=== PATIENT | female | born 1960 | race Caucasian/White ===

== ENCOUNTER 2017-04-04 18:50 | Emergency (ER) | payer OTHER ==
[~2017-04-04] VITALS: Ht 167.6 cm; Wt 99.8 kg
[~2017-04-04 18:50] MED LIST: ADVIL200 MG PO; AMITRIPTYLINE H25 M1 PO; FIORICET 325 MG1 TAB PO; LISINOPRIL-HCT1 EACH PO; MULTIVITAMIN1 TAB PO; NORVASC5 M1 PO; OXYBUTYNIN CHLOR5 M3 PO; PAROXETINE HCL30 M1 PO; SIMVASTATIN40 MG PO; SINGULAIR10 MG PO; VESICARE5 MG PO
--- NOTE | 2017-04-04 19:32 | ED UPPER/LOWER EXTREMITY COMPL ---
History of Present Illness General Chief Complaint: General Adult Stated Complaint: SWELLING TO HANDS "SOMETHING'S NOT RIGHT" X1DAY Source: patient Exam Limitations: no limitations Vital Signs & Intake/Output Vital Signs & Intake/Output Vital Signs Date Time Temp Pulse Resp B/P B/P Pulse O2 O2 Flow FiO2 Mean Ox Delivery Rate 04/04 2046 97.1 79 18 175/93 94 Room Air 04/04 1856 97.1 85 18 166/87 100 Room Air Allergies Coded Allergies: levofloxacin (Severe, ANAPHYLAXIS 08/16/16) sumatriptan (PALPITATIONS AND CHEST HEAVINESS 08/16/16) Reconcile Medications Acetaminophen/Butalbital/Caf (Fioricet 325 MG-50 MG-40 MG) 1 TAB TAB 1 TAB PO Q4P PRN HEADACHE do not exceed 6 tablet(s) in 24 hours AMITRIPTYLINE HCL (Amitriptyline Hydrochloride) 25 MG TAB 1 TAB PO QPM FIBROMYALGIA (Reported) Amlodipine Besylate (Norvasc) 5 MG TABLET 1 TAB PO DAILY htn Ibuprofen (Advil) 200 MG TAB 2 TAB PO QPM FIBROMYALGIA (Reported) Lisinopril/Hydrochlorothiazide (Lisinopril-Hctz 20-12.5 MG Tab) 1 EACH TABLET 1 TAB PO DAILY HEART (Reported) Montelukast Sodium (Singulair) 10 MG TAB 1 TAB PO DAILY ALLERGIES (Reported) Multivitamin (Multiple Vitamins) 1 TAB TAB 1 TAB PO DAILY SUPPLEMENT ( Reported) Oxybutynin Chloride (Oxybutynin Chloride ER) 5 MG TAB.ER.24 1 TAB PO DAILY BLADDER (Reported) Paroxetine HCl 30 MG TABLET 1 TAB PO DAILY MENTAL HEALTH (Reported) Simvastatin 40 MG TAB 1 TAB PO QPM CHOLESTEROL (Reported) Solifenacin Succinate (Vesicare) 5 MG TAB 1 TAB PO DAILY BLADDER (Reported) Triage Note: PT TO ED FOR 20 MINUTES OF BILATERAL HAND SWELLING, PT REPORTING SWELLING MOSTLY RESOLVED ON ARRIVAL TO ED, DID NOT TAKE ANYTHING AT HOME FOR IT, NO INJURY, BITE OR KNOWN CAUSE. DENIES ANY OTHER S/S. Triage Nurses Notes Reviewed? 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 pt denies prior episodes. no assoc fever, cold sxs, trauma or exposures. pt was walking outside during onset. Symptoms have now resolved. Patient states over she needed to take her rings off because of the swelling. Although she denied any prior episodes, she states she has had very mild symptoms on occasion. She also denied swelling in any other areas but with further questioning she is currently experiencing a rash of the left anterior leg that has been present for a month. She is using compression stockings for this. She has a similar although less intense rash in the same area on her right leg. Past History Travel History Traveled to [place] past 21 day No Medical History Any Pertinent Medical History? see below for history Neurological: migraine EENT: NONE Cardiovascular: hypertension Respiratory: NONE Gastrointestinal: NONE Hepatic: NONE Renal: NONE Musculoskeletal: fibromyalgia Psychiatric: NONE Endocrine: NONE Blood Disorders: NONE Cancer(s): NONE Surgical History Surgical History: hysterectomy Psychosocial History What is your primary language Greek Tobacco Use: Never used ETOH Use: denies use Illicit Drug Use: denies illicit drug use Family History Hx Contributory? No Review of Systems Review of Systems Constitutional: Reports: no symptoms. EENTM: Reports: no symptoms. Respiratory: Reports: no symptoms. Cardiovascular: Reports: no symptoms. Gastrointestinal/Abdominal: Reports: no symptoms. Genitourinary: Reports: no symptoms. Musculoskeletal: Reports: no symptoms. Skin: Reports: see HPI. Neurological/Psychological: Reports: no symptoms. Hematologic/Endocrine: Reports: no symptoms. Immunological: Reports: no symptoms. All Other Systems: Reviewed and Negative Physical Exam Physical Exam General Appearance: see below Comments: Gen.: Well-nourished, well-developed, no acute respiratory distress. Head: Normocephalic, atraumatic. Eyes: Normal inspection bilaterally Ears: Normal inspection bilaterally Nose: Normal inspection Throat/mouth : Moist mucosa Neck: Supple, full range of motion, no goiter Heart: Regular rate and rhythm, no murmurs rubs or gallops Lungs: Clear to auscultation bilaterally with normal air entry Chest: Nontender Back: Normal range of motion Abdomen: Soft, nontender, nondistended, normal bowel sounds Extremities: Normal range of motion grossly, equal radial pulses, no cyanosis, no pallor or edema of the hands, sensation is intact to both hands. Bilateral 1 -2+ lower extremity pitting edema with bilateral stasis dermatitis left greater than right. Neurologic: Cranial nerves grossly intact, speech is clear Skin: warm and dry Psychiatric: Calm, cooperative, no apparent delusions or hallucinations Progress Differential Diagnosis: hypertension, vasogenic edema, medication side effect Plan of Care: Orders Procedure Date/time Status COMPREHENSIVE METABOLIC PANEL 04/04 1930 Complete CREATINE PHOSPHOKINASE 04/04 1930 Complete CBC WITHOUT DIFFERENTIAL 04/04 1930 Complete Laboratory Tests 04/04/171945: Anion Gap 10, Estimated GFR 57 L, BUN/Creatinine Ratio 16.0, Glucose 93, Calcium 9.3, Total Bilirubin 0.6, AST 25, ALT 47, Alkaline Phosphatase 94, Creatine Kinase 76, Total Protein 7.2, Albumin 4.2, Globulin 3.0, Albumin/ Globulin Ratio 1.4, CBC w Diff NO MAN DIFF REQ, RBC 4.88, MCV 83.2, MCH 28.3, RDW 13.7, MPV 7.8, Gran % 58.5, Lymphocytes % 30.8, Monocytes % 6.4, Eosinophils % 3.5, Basophils % 0.8, Absolute Granulocytes 6.0, Absolute Lymphocytes 3.1, Absolute Monocytes 0.6, Absolute Eosinophils 0.4, Absolute Basophils 0.1, PUBS MCHC 34.0 Comments: Examination reveals a stasis dermatitis of both legs, left greater than right. She also has 1-2+ lower extremity pitting edema. Laura states at one point she was treated with an antihypertensive with a diuretic but her blood pressure was too labile and this was discontinued. She has had reactions to other antihypertensive medications. 04/04/2017 9:00:46 PM I have updated Laura on her test results. She has replaced her rings on her hands and seems to be without complaint. Departure Departure Disposition: HOME OR SELF CARE Condition: Stable Clinical Impression Primary Impression: Edema of hand Referrals: RAYMOND DAMON MD (PCP/Family) Additional Instructions: Low-salt diet and avoid caffeine or stimulants. Follow-up with your primary care doctor within the next 48-72 hours for reevaluation of your elevated blood pressure. It seems that you should be placed on blood pressure medications to control your blood pressure in the future. Your primary care doctor should also consider other possibilities for your hand swelling other than high blood pressure (medication side effect, vasogenic edema secondary to heat exposure). Return immediately if any concerns or sudden worsening. Thank you for choosing the [facility] Emergency Department for your care. It was a pleasure to serve you today. Julio C Hastings M.D. [facility] Departure Forms: Customer Survey General Discharge Information
[2017-04-04 19:54] LABS: ABSOLUTE BASOPHIL COUNT 0.1 /CUMM (0.0-0.2); ABSOLUTE EOSINOPHIL COUNT 0.4 /CUMM (0.0-0.7); ABSOLUTE LYMPH COUNT 3.1 /CUMM (1.2-3.4); ABSOLUTE MONOCYTE COUNT 0.6 /CUMM (0.10-0.60); BASOPHIL % 0.8 % (0.0-2.0); EOSINOPHIL % 3.5 % (0-5); GRANULOCYTE % 58.5 % (42.2-75.2); HEMATOCRIT 40.6 % (37-47); MEAN CORPUSCULAR HGB 28.3 PG (27.0-31.0); MEAN CORPUSCULAR VOLUME 83.2 FL (81.0-99.0); MEAN PLATELET VOLUME 7.8 FL (7.4-10.4); PLATELET COUNT 308 /CUMM (130-400); RBC DISTRIBUTION WIDTH 13.7 % (11.5-14.5); RED BLOOD CELL CT 4.88 /CUMM (4.20-5.40); WHITE BLOOD CELL COUNT 10.2 /CUMM (4.8-10.8)
[2017-04-04 20:46] VITALS: BP 175/93
== END 2017-04-04 21:14 ==
LOC: ERH 18:50
PROVIDERS: Emergency Medicine
DX: R60.9 Edema, unspecified (principal)

== ENCOUNTER 2018-06-25 17:45 | Emergency (ER) | payer OTHER ==
[~2018-06-25] VITALS: Ht 167.6 cm; Wt 97.1 kg
--- NOTE | 2018-06-25 18:24 | ED GENERAL ADULT ---
History of Present Illness General Chief Complaint: Neck/Upper Back Pain/Injury Stated Complaint: RIGHT UPPER BACK PAIN Source: patient Exam Limitations: no limitations Vital Signs & Intake/Output Vital Signs & Intake/Output Vital Signs Date Time Temp Pulse Resp B/P B/P Pulse O2 O2 Flow FiO2 Mean Ox Delivery Rate 06/25 1956 97.8 61 16 141/78 100 Room Air 06/258 98.6 78 18 133/86 100 Room Air Allergies Coded Allergies: amlodipine (From NORVASC) (Severe, RASH 06/25/18) levofloxacin (Severe, ANAPHYLAXIS 08/16/16) lisinopril (Severe, IRRADIC BP 06/25/18) sumatriptan (PALPITATIONS AND CHEST HEAVINESS 08/16/16) Uncoded Allergies: QUINALONES (Severe, ANAPHYLAXIS 06/25/18) Triage Note: 57 YO FEMALE TO TRIAGE FOR EVAL OF PAIN IN UPPER BACK ON BOTH SIDES. STATES HX OF PLEURISY AND THIS FEELS THE SAME. STATES PAIN ON INSPIRATION. DENIES CHEST PAIN. Triage Nurses Notes Reviewed? yes HPI: Ms. Stewart is a 57-year-old patient with a significant past medical history of fibromyalgia comes to the ED complaining of back pain/chest pain after called to her PCP advised her to come to the emergency department. This chest/back pain is located on both sides in the upper back, present only on deep inspiration; when present the pain is 8 out of 10, described as sharp stabbing, that did not alleviate with Tylenol, nor does he radiate anywhere else. Of note , patient reports she has had this type of pain episodes in the past. Patient denies recent upper respiratory tract infection, cough, rhinorrhea, shortness of breath, recent immobilization, sick contacts, pain in the lower extremity, fever , chills, nausea/vomiting. (Jude Bowens MD,[facility]) Reconcile Medications Acetaminophen/Butalbital/Caf (Fioricet 325 MG-50 MG-40 MG) 1 TAB TAB 1 TAB PO Q4P PRN HEADACHE do not exceed 6 tablet(s) in 24 hours AMITRIPTYLINE HCL (Amitriptyline Hydrochloride) 25 MG TAB 1 TAB PO QPM FIBROMYALGIA (Reported) Amlodipine Besylate (Norvasc) 5 MG TABLET 1 TAB PO DAILY htn Ibuprofen (Advil) 200 MG TAB 2 TAB PO QPM FIBROMYALGIA (Reported) Ibuprofen 600 MG TABLET 1 TAB PO Q6P PRN pain with food Lisinopril/Hydrochlorothiazide (Lisinopril-Hctz 20-12.5 MG Tab) 1 EACH TABLET 1 TAB PO DAILY HEART (Reported) Montelukast Sodium (Singulair) 10 MG TAB 1 TAB PO DAILY ALLERGIES (Reported) Multivitamin (Multiple Vitamins) 1 TAB TAB 1 TAB PO DAILY SUPPLEMENT ( Reported) Oxybutynin Chloride (Oxybutynin Chloride ER) 5 MG TAB.ER.24 1 TAB PO DAILY BLADDER (Reported) Paroxetine HCl 30 MG TABLET 1 TAB PO DAILY MENTAL HEALTH (Reported) Simvastatin 40 MG TAB 1 TAB PO QPM CHOLESTEROL (Reported) Solifenacin Succinate (Vesicare) 5 MG TAB 1 TAB PO DAILY BLADDER (Reported) (Luis Carlos CUBA,Leeroy Florentino) Past History Travel History Traveled to [place] past 21 day No Medical History Any Pertinent Medical History? none Neurological: migraine EENT: NONE Cardiovascular: hypertension Respiratory: NONE Gastrointestinal: NONE Hepatic: NONE Renal: NONE Musculoskeletal: fibromyalgia Psychiatric: NONE Endocrine: NONE Blood Disorders: NONE Cancer(s): NONE Surgical History Surgical History: hysterectomy Psychosocial History What is your primary language Tanzanian Tobacco Use: Never used Family History Hx Contributory? Yes (Deonte Briscoe MD) Review of Systems Review of Systems Constitutional: Reports: see HPI. (Deonte Briscoe MD) Review of Systems Constitutional: Reports: no symptoms. EENTM: Reports: no symptoms. Respiratory: Reports: see HPI, cough. Cardiovascular: Reports: see HPI, chest pain. GI: Reports: no symptoms. Genitourinary: Reports: no symptoms. Musculoskeletal: Reports: no symptoms. Skin: Reports: no symptoms. Neurological/Psychological: Reports: no symptoms. Hematologic/Endocrine: Reports: no symptoms. Immunologic/Allergic: Reports: no symptoms. All Other Systems: Reviewed and Negative (Carlos Collins MD) Physical Exam Physical Exam General Appearance: well developed/nourished, no apparent distress, alert, awake Comments: General: Well-nourished, well-developed, not in acute distress. Head: Normocephalic, atraumatic. No signs of trauma. Eyes: Normal inspection bilaterally. Ears: Normal inspection bilaterally. Nose: Normal inspection, no polyps seen. Neck: Supple, full range of motion. Trachea midline. Heart: Regular rate and rhythm, no murmurs rubs or gallops. Lungs: Clear to auscultation bilaterally with normal air entry; pain is noted upon deep inspiration. Chest: Nontender. Back: Normal range of motion, no pain on palpation in lung area; no paraspinal tenderness. Abdomen: Bowel sounds present, soft, nontender, nondistended. Extremities: Normal range of motion grossly, equal radial pulses, no cyanosis clubbing or edema. Neurologic: Cranial nerves grossly intact, speech is clear Skin: warm and dry. Core Measures ACS in differential dx? No CVA/TIA Diagnosis: No Sepsis Present: No Sepsis Focused Exam Completed? No (Jude Bowens MD,[place]) Progress Differential Diagnoses I considered the following diagnoses in my evaluation of the patient: [Pleurisy, PNA, PE] Plan of Care: Orders Procedure Date/time Status Add-on Test (ER Only) 06/25 183 Active TROPONIN LEVEL 06/25 1800 Complete HIGH SENSITIVITY CRP 06/25 1800 Complete WESTERGREN SED RATE 06/25 1800 Complete D-DIMER 06/25 1800 Complete CBC WITHOUT DIFFERENTIAL 06/25 1800 Complete BASIC METABOLIC PANEL 06/25 1800 Complete EKG 06/25 1800 Active Laboratory Tests 06/25/18 1840: Anion Gap 6, Estimated GFR > 60, BUN/Creatinine Ratio 22.5, Glucose 96, Calcium 9.0, Troponin I < 0.01, C-React Prot High Sens 5.8 H, D-Dimer High Sensitivty < 200, CBC w Diff NO MAN DIFF REQ, RBC 4.59, MCV 85.8, MCH 29.1, MCHC 33.9, RDW 13.4, MPV 8.1, Gran % 52.4, Lymphocytes % 35.9, Monocytes % 8.3, Eosinophils % 2.9, Basophils % 0.5, Absolute Granulocytes 4.5, Absolute Lymphocytes 3.1, Absolute Monocytes 0.7 H, Absolute Eosinophils 0.2, Absolute Basophils 0, ESR Westergren 3 Initial ED EKG: rhythm (Jude Bowens MD,[place]) Differential Diagnoses I considered the following diagnoses in my evaluation of the patient: Hand-Off Endorsed To: Leeroy Aldridge MD Endorsed Time: 1899 Pending: labs (Carlos Collins MD) Differential Diagnoses I considered the following diagnoses in my evaluation of the patient: (Luis Carlos CUBA,Leeroy Florentino) Departure Departure Condition: Stable Referrals: Moo Bentley MD (PCP/Family) Departure Forms: Customer Survey General Discharge Information (Jude Bowens MD,[place]) Departure Clinical Impression Primary Impression: Acute chest wall pain Resident Co-Sign Statement Statement: ED Attending supervision documentation- x I saw and evaluated the patient. I have also reviewed all the pertinent lab results and diagnostic results. I agree with the findings and the plan of care as documented in the Resident's documentation. [] I have reviewed the ED Record and agree with the Resident's documentation. [] Additions or exceptions (if any) to the Resident's note and plan are summarized below: [] (Carlos Collins MD) Departure Disposition: HOME OR SELF CARE Additional Instructions: continue the alieve take percoccet as needed for severe pain percocet is very constipating and sedating. do not drive aftert taking it return if symptoms worsen or for any concerns Prescriptions: Current Visit Scripts Oxycodone HCl/Acetaminophen (Percocet 5-325 MG Tablet) 1-2 TAB PO Q6P PRN PAIN #20 TAB Ibuprofen 1 TAB PO Q6P PRN pain #50 TAB with food (Luis Carlos CUBA,Leeroy Florentino) Critical Care Note Critical Care Note Critical Care Time: non-applicable (Carlos Collins MD)
[2018-06-25 19:00] LABS: ABSOLUTE BASOPHIL COUNT 0 /CUMM (0.0-0.2); ABSOLUTE EOSINOPHIL COUNT 0.2 /CUMM (0.0-0.7); ABSOLUTE GRANULOCYTE CT 4.5 /CUMM (1.4-6.5); ABSOLUTE LYMPH COUNT 3.1 /CUMM (1.2-3.4); ABSOLUTE MONOCYTE COUNT 0.7 /CUMM (0.10-0.60); BASOPHIL % 0.5 % (0.0-2.0); EOSINOPHIL % 2.9 % (0-5); GRANULOCYTE % 52.4 % (42.2-75.2); HEMATOCRIT 39.4 % (37-47); MEAN CORPUSCULAR HGB 29.1 PG (27.0-31.0); MEAN CORPUSCULAR HGB CONC 33.9 G/DL (33.0-37.0); MEAN CORPUSCULAR VOLUME 85.8 FL (81.0-99.0); MEAN PLATELET VOLUME 8.1 FL (7.4-10.4); PLATELET COUNT 325 /CUMM (130-400); RBC DISTRIBUTION WIDTH 13.4 % (11.5-14.5); RED BLOOD CELL CT 4.59 /CUMM (4.20-5.40); WHITE BLOOD CELL COUNT 8.6 /CUMM (4.8-10.8)
--- NOTE | 2018-06-25 19:09 | RADIOLOGY REPORT ---
EXAMINATION: CHEST 2 VIEWS CLINICAL INFORMATION: Pain. COMPARISON: None. TECHNIQUE: PA and lateral views of the chest were obtained. FINDINGS: The cardiac silhouette is not enlarged. The mediastinal and hilar contours are unremarkable. There are neither pleural effusions nor pneumothoraces. There are no consolidations. The osseous structures are unremarkable. IMPRESSION: No evidence for acute disease.
[2018-06-25] MEDS ORDERED: IBUPROFEN600 M1 PO (19:11)
[2018-06-25 19:56] VITALS: BP 141/78
[2018-06-25] MEDS ORDERED: PERCOCET 5-3251 EACH PO (20:18)
== END 2018-06-25 20:34 ==
LOC: ERH 17:45
PROVIDERS: Physician Assistant
DX: R07.89 Other chest pain (principal); M54.6 Pain in thoracic spine; I10 Essential (primary) hypertension; M79.7 Fibromyalgia
CPT/HCPCS: 71046; 93005; 93010